=== PATIENT | female | born 1940 | race Caucasian/White ===

== ENCOUNTER 2017-06-17 20:00 | Observation (INO) | payer MEDICARE, OTHER ==
[2017-06-17] MEDS ORDERED: Aspirin 81 MG Tab.Chew PO ONE (21:46)
--- NOTE | 2017-06-17 21:49 | EDM.PDOC ---
ED HPI GENERAL MEDICAL PROBLEM - General Chief Complaint: Chest Pain Stated Complaint: CHEST PAIN Time Seen by Provider: 06/17/17 20:00 Source of Information: Reports: Patient History Limitations: Reports: No Limitations - History of Present Illness INITIAL COMMENTS - FREE TEXT/NARRATIVE: c/o L sided CP x 2.5h pain 08/08, gone just as arrived at ED, no radiation, not had before, has h/o GERD in midline altho this was different no change with walking or DB or changing position never smoked did have CP once before in 2014, admitted for r/o then, not had a stress done never smoked was shopping at the time of CP, no other sxs, no n/v, no f/c/d, no cough/sob had PE 1m ago with PCP Dr Alexandrea kaye in borderline high 0.056, will repeat d-dimer inc'd, will obtain chest CTA has been quite comfortable here 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 Left Breast Pain Score (Numeric/FACES): 5 - Related Data Allergies Allergy/AdvReac Type Severity Reaction Status Date / Time SHRIMP Allergy Rash Uncoded 06/17/17 20:22 Home Meds: Home Meds Fish Oil/DHA/EPA [Fish Oil 1,200 MG] 2 ea PO BEDTIME 06/20/15 [History] Lutein 20 mg PO DAILY 06/20/15 [History] Niacin 1,000 mg PO DAILY 06/20/15 [History] Bisoprolol/Hydrochlorothiazide [Bisoprolol/HCTZ 5-6.25 MG] 1 tab PO ASDIRECTED 06/17/17 [History] Gabapentin [Neurontin] 300 mg PO ASDIRECTED 06/17/17 [History] Past Medical History HEENT History: Reports: Cataract, Impaired Vision Cardiovascular History: Reports: High Cholesterol, Hypertension Gastrointestinal History: Reports: Chronic Constipation, Colon Polyp, GERD Genitourinary History: Reports: Other (See Below) Other Genitourinary History: UNABLE TO COMPOETELY EMPTY BLADDER AT TIMES DIET TECH History: Reports: Other OB/BYN History: HYSTERECTOMIES Musculoskeletal History: Reports: Arthritis, Back Pain, Chronic Endocrine/Metabolic History: Reports: Obesity/BMI 30+ - Infectious Disease History Infectious Disease History: Reports: Chicken Pox, Shingles - Past Surgical History Cardiovascular Surgical History: Reports: Other (See Below) Other Cardiovascular Surgeries/Procedures: angiogram GI Surgical History: Reports: Colonoscopy Female Surgical History: Reports: Hysterectomy Musculoskeletal Surgical History: Reports: Carpal Tunnel, Knee Replacement, Other (See Below) Other Musculoskeletal Surgeries/Procedures:: back surgury Social & Family History - Family History Family Medical History: Noncontributory - Tobacco Use Smoking Status *Q: Never Smoker Second Hand Smoke Exposure: No - Caffeine Use Caffeine Use: Reports: Coffee - Alcohol Use Days Per Week of Alcohol Use: 0 - Recreational Drug Use Recreational Drug Use: No - Living Situation & Occupation Living situation: Reports: , Alone Occupation: Retired ED ROS GENERAL - Review of Systems Review Of Systems: See Below Constitutional: Reports: No Symptoms. Denies: Fever HEENT: Reports: No Symptoms Respiratory: Reports: No Symptoms. Denies: Shortness of Breath, Cough Cardiovascular: Reports: Chest Pain Endocrine: Reports: No Symptoms GI/Abdominal: Reports: No Symptoms : Reports: No Symptoms Musculoskeletal: Reports: No Symptoms Skin: Reports: No Symptoms Neurological: Reports: No Symptoms Psychiatric: Reports: No Symptoms Hematologic/Lymphatic: Reports: No Symptoms Immunologic: Reports: No Symptoms ED EXAM, GENERAL - Physical Exam Exam: See Below Exam Limited By: No Limitations General Appearance: Alert, WD/WN, No Apparent Distress Ears: Normal External Exam Nose: Normal Inspection, Normal Mucosa, No Blood Throat/Mouth: Normal Inspection, Normal Lips, Normal Gums, Normal Voice, No Airway Compromise Head: Atraumatic, Normocephalic Neck: Normal Inspection, Supple, Non-Tender, Full Range of Motion Respiratory/Chest: No Respiratory Distress, Lungs Clear, Normal Breath Sounds, No Accessory Muscle Use, Chest Non-Tender, Other (discomfort in MCL several cm below clavicle, NT now) Cardiovascular: Regular Rate, Rhythm, No Edema, No Gallop, No JVD, No Rub, Other (2/6 JEREMIAS at LSB) GI/Abdominal: Normal Bowel Sounds, Soft, Non-Tender, No Distention Back Exam: Normal Inspection, Full Range of Motion, NT Extremities: Normal Inspection, Normal Range of Motion, Non-Tender, Other ( trace edmea b/l, symmetric) Neurological: Alert, Oriented, CN II-XII Intact, Normal Cognition, No Motor/ Sensory Deficits Psychiatric: Normal Affect, Normal Mood Skin Exam: Warm, Dry, Intact, Normal Color, No Rash Lymphatic: No Adenopathy Course - Vital Signs Last Recorded V/S: Last Vital Signs Temp 36.8 C 06/17/17 20:34 Pulse 57 L 06/17/17 22:36 Resp 14 06/17/17 22:36 BP 146/70 H 06/17/17 22:36 Pulse Ox 98 06/17/17 22:36 - Orders/Labs/Meds Orders: Active Orders 24 hr Category Date Time Status Admission Status [Patient Status] [ADT] Routine ADT 06/17/17 23:50 Ordered EKG Documentation Completion [RC] ASDIRECTED Care 06/17/17 20:39 Active Ang Chest [CT] Stat Exams 06/17/17 21:38 Taken Chest 2V [CR] Stat Exams 06/17/17 20:38 Taken Sodium Chloride 0.9% [Saline Flush] Med 06/17/17 21:58 Active 10 ml FLUSH ASDIRECTED PRN Saline Lock Insert [OM.PC] Routine Oth 06/17/17 21:58 Ordered EKG 12 Lead [EK] Routine Ther 06/17/17 20:38 Ordered Medication Orders Sodium Chloride (Saline Flush) 10 ml FLUSH ASDIRECTED PRN PRN Reason: Keep Vein Open Last Admin: 06/17/17 21:58 Dose: 10 ml Labs: Laboratory Tests 06/17/17 06/17/17 06/17/17 Range/Units 20:55 20:55 20:55 WBC 7.3 (4.5-12.0) X10-3/uL RBC 4.58 (3.23-5.20) x10(6)uL Hgb 13.5 (11.5-15.5) g/dL Hct 40.3 (30.0-51.3) % MCV 88.0 (80-96) fL MCH 29.5 (27.7-33.6) pg MCHC 33.5 (32.2-35.4) g/dL RDW 13.7 (11.5-15.5) % Plt Count 256 (125-369) X10(3)uL MPV 7.9 (7.4-10.4) fL Neut % (Auto) 57.0 (46-82) % Lymph % (Auto) 30.1 (13-37) % Ferry % (Auto) 9.8 (4-12) % Eos % (Auto) 2 (1.0-5.0) % Baso % (Auto) 1 (0-2) % Neut # (Auto) 4.1 (1.6-8.3) # Lymph # (Auto) 2.2 (0.6-5.0) # Ferry # (Auto) 0.7 (0.0-1.3) # Eos # (Auto) 0.2 (0.0-0.8) # Baso # (Auto) 0.1 (0.0-0.2) # D-Dimer, Quantitative 920 H (100-400) ng/mL Sodium 143 (135-145) mmol/L Potassium 4.1 (3.5-5.3) mmol/L Chloride 106 (100-110) mmol/L Carbon Dioxide 27 (21-32) mmol/L BUN 17 (7-18) mg/dL Creatinine 0.9 (0.55-1.02) mg/dL Est Cr Clr Drug Dosing 43.77 mL/min Estimated GFR (MDRD) > 60 (>60) BUN/Creatinine Ratio 18.9 (9-20) Glucose 114 (80-116) mg/dL Calcium 9.0 (8.6-10.2) mg/dL Total Bilirubin 0.3 (0.1-1.3) mg/dL AST 23 (5-25) IU/L ALT 26 (12-36) U/L Alkaline Phosphatase 83 (56-112) IU/L Troponin I (<0.017-0.056) ng/mL C-Reactive Protein (0.5-0.9) mg/dL NT-Pro-B Natriuret Pep (<=450) pg/mL Total Protein 7.6 (6.0-8.0) g/dL Albumin 3.4 (3.2-4.6) g/dL Globulin 4.2 g/dL Albumin/Globulin Ratio 0.8 06/17/17 06/17/17 Range/Units 20:55 23:05 WBC (4.5-12.0) X10-3/uL RBC (3.23-5.20) x10(6)uL Hgb (11.5-15.5) g/dL Hct (30.0-51.3) % MCV (80-96) fL MCH (27.7-33.6) pg MCHC (32.2-35.4) g/dL RDW (11.5-15.5) % Plt Count (125-369) X10(3)uL MPV (7.4-10.4) fL Neut % (Auto) (46-82) % Lymph % (Auto) (13-37) % Ferry % (Auto) (4-12) % Eos % (Auto) (1.0-5.0) % Baso % (Auto) (0-2) % Neut # (Auto) (1.6-8.3) # Lymph # (Auto) (0.6-5.0) # Ferry # (Auto) (0.0-1.3) # Eos # (Auto) (0.0-0.8) # Baso # (Auto) (0.0-0.2) # D-Dimer, Quantitative (100-400) ng/mL Sodium (135-145) mmol/L Potassium (3.5-5.3) mmol/L Chloride (100-110) mmol/L Carbon Dioxide (21-32) mmol/L BUN (7-18) mg/dL Creatinine (0.55-1.02) mg/dL Est Cr Clr Drug Dosing mL/min Estimated GFR (MDRD) (>60) BUN/Creatinine Ratio (9-20) Glucose (80-116) mg/dL Calcium (8.6-10.2) mg/dL Total Bilirubin (0.1-1.3) mg/dL AST (5-25) IU/L ALT (12-36) U/L Alkaline Phosphatase (56-112) IU/L Troponin I 0.056 0.058 H (<0.017-0.056) ng/mL C-Reactive Protein 0.3 L (0.5-0.9) mg/dL NT-Pro-B Natriuret Pep 291 (<=450) pg/mL Total Protein (6.0-8.0) g/dL Albumin (3.2-4.6) g/dL Globulin g/dL Albumin/Globulin Ratio Meds: Medications Generic Name Dose Route Start Last Admin Trade Name Freq PRN Reason Stop Dose Admin Sodium Chloride 10 ml 06/17/17 21:58 06/17/17 21:58 Saline Flush FLUSH 10 ml ASDIRECTED PRN Administration Keep Vein Open Discontinued Medications Generic Name Dose Route Start Last Admin Trade Name Mati PRN Reason Stop Dose Admin Aspirin 324 mg 06/17/17 21:46 06/17/17 22:01 Aspirin PO 06/17/17 21:47 324 mg ONETIME ONE Administration Iopamidol 80 ml 06/17/17 21:54 06/17/17 22:12 Isovue-370 (76%) IV 06/17/17 21:55 80 ml . DIRECTED ONE Administration - Re-Assessments/Exams Free Text/Narrative Re-Assessment/Exam: 06/17/17 23:52 inc'd d-dimer, however chest CTA is neg for PE trop x 2 at ULN at 0.056 and 0.058, which is an increase from trop x 3 from 3y ago that were 0.001 admission to obs bed recommended, pt and son agree pt worried re cost of admission, will defer on ASA 81 mg for now as she was given 324 mg PO this evening and can also take a dose of ASA 81 mg within 24h if she should be d/c'ed by tomorrow afternoon Departure - Departure Time of Disposition: 23:55 Disposition: Home, Self-Care 01 Condition: Good Clinical Impression: Chest pain, rule out acute myocardial infarction, Elevated troponin Referrals: Aj Torres MD [Primary Care Provider] - Forms: ED Department Discharge - My Orders Last 24 Hours: My Active Orders 06/17/17 20:38 Chest 2V [CR] Stat EKG 12 Lead [EK] Routine 06/17/17 20:39 EKG Documentation Completion [RC] ASDIRECTED 06/17/17 21:38 Ang Chest [CT] Stat 06/17/17 21:58 Sodium Chloride 0.9% [Saline Flush] 10 ml FLUSH ASDIRECTED PRN Saline Lock Insert [OM.PC] Routine 06/17/17 23:50 Admission Status [Patient Status] [ADT] Routine - Assessment/Plan Last 24 Hours: My Active Orders 06/17/17 20:38 Chest 2V [CR] Stat EKG 12 Lead [EK] Routine 06/17/17 20:39 EKG Documentation Completion [RC] ASDIRECTED 06/17/17 21:38 Ang Chest [CT] Stat 06/17/17 21:58 Sodium Chloride 0.9% [Saline Flush] 10 ml FLUSH ASDIRECTED PRN Saline Lock Insert [OM.PC] Routine 06/17/17 23:50 Admission Status [Patient Status] [ADT] Routine
[2017-06-17] MEDS ORDERED: Iopamidol 755 Mg/ML 100 ML Bottle IV ONE (21:54)
[2017-06-17] MEDS ORDERED: Sodium Chloride 0.9% 10 ML Syringe FLUSH PRN (21:58)
[2017-06-18] MEDS ORDERED: Acetaminophen 500 MG Tab PO SCH (09:00)
[2017-06-18] MEDS ORDERED: Gabapentin 300 MG Cap PO SCH ×2 (09:00→12:00)
--- NOTE | 2017-06-18 11:03 | CR ---
INDICATION: Left-sided chest pain. CHEST: PA and lateral views of the chest, 06/17/2017, were compared with 2014, and revealed the aorta to be tortuous with calcification in the arch. The heart appears to be at the upper limits of normal in size, possibly with some minimal left ventricular enlargement. Overlying EKG leads are noted. An active infiltrate or effusion was not identified. Flattened diaphragm leaves, prominent AP diameter, and hyperaeration all suggest COPD. Flowing hyperostotic changes are noted in the upper middle thoracic spine, possibly on the basis of DISH. Somewhat diminished bone density is suggested, compatible with osteoporosis. IMPRESSION: No acute process. Findings as noted above. MTDD
[2017-06-18 17:20] VITALS: BP 114/59
--- NOTE | 2017-06-18 17:35 | PCM.HP ---
H&P History of Present Illness - General Date of Service: 06/18/17 Admit Problem/Dx: Admission Diagnosis/Problem Admission Diagnosis/Problem Chest pain, rule out acute myocardial infarction Source of Information: Patient, Old Records, Provider History Limitations: Reports: No Limitations - History of Present Illness Initial Comments - Free Text/Narative: Patient is a 77-year-old female with a history of gastroesophageal reflux disease who last evening about 5 PM after shopping all day developed left-sided chest pain 5 out of 10 while sitting in a chair. Lasted about 2-1/2 hours. She took a baby aspirin. She thought it was "indigestion" and she's had a lot of indigestion in the past but she had just taken her gabapentin so was unable to take a heartburn medication for it and grew more and more concerned so finally decided to come to the emergency department. She had no other symptoms, no shortness of breath, no dizziness, no nausea, no vomiting, no bile taste in the mouth, no radiation of the pain. The pain was just in the left chest right where the "heart is". Past medical history: #1 hyperlipidemia #2 hypertension #3 constipation #4 gastroesophageal reflux disease #5 urinary retention #6 osteoarthritis #7 obesity Social history: The patient is and has 4 sons. She lives alone outside of [place] and one son is fairly nearby about 5 miles away. She drinks about one drink less than once a week and does not smoke. Family history: Mother of heart disease at 90 and father of heart disease at 89. She has 4 sons with no medical problems other than one who has diabetes. Left Breast Pain Score (Numeric/FACES): 5 - Related Data Allergies/Adverse Reactions: Allergies Allergy/AdvReac Type Severity Reaction Status Date / Time SHRIMP Allergy Rash Uncoded 06/17/17 20:22 Home Medications: Home Meds Lutein 20 mg PO DAILY@1200 06/20/15 [History] Niacin 1,000 mg PO DAILY@1200 06/20/15 [History] Bisoprolol/Hydrochlorothiazide [Bisoprolol/HCTZ 5-6.25 MG] 1 tab PO DAILY@1200 06/17/17 [History] Gabapentin [Neurontin] 600 mg PO BID 06/17/17 [History] Acetaminophen [Tylenol Extra Strength] 1,000 mg PO BID 06/18/17 [History] Carboxymethylcellulose Sodium [Refresh Tears] 1 drop EYEBOTH TID PRN 06/18/17 [ History] Fish Oil/[place]-3 Fatty Acids [Fish Oil 1,000 MG] 2 gm PO DAILY@1200 06/18/17 [ History] Gabapentin [Neurontin] 300 mg PO 1200 06/18/17 [History] Inulin/Chromium Picolinate [Fiber Gummies] 1 tab CHEW BEDTIME 06/18/17 [History] L.acidoph,Paracasei, B.lactis [Probiotic] 1 each PO 1200 06/18/17 [History] Past Medical History HEENT History: Reports: Cataract, Impaired Vision Cardiovascular History: Reports: High Cholesterol, Hypertension Gastrointestinal History: Reports: Chronic Constipation, Colon Polyp, GERD, Hemorrhoids Genitourinary History: Reports: Other (See Below) Other Genitourinary History: UNABLE TO COMPLETELY EMPTY BLADDER AT 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: Musculoskeletal History: Reports: Arthritis, Back Pain, Chronic Neurological History: Reports: None Endocrine/Metabolic History: Reports: Obesity/BMI 30+ Hematologic History: Reports: Anemia, Blood Transfusion(s) - Infectious Disease History Infectious Disease History: Reports: Chicken Pox, Measles, Shingles - Past Surgical History Head Surgeries/Procedures: Reports: None Cardiovascular Surgical History: Reports: Other (See Below) Other Cardiovascular Surgeries/Procedures: angiogram GI Surgical History: Reports: Colonoscopy, Other (See Below) Other GI Surgeries/Procedures: hemorrhoid surgery Female Surgical History: Reports: D&C, Hysterectomy Other Female Surgeries/Procedures: 2 D&C's Neurological Surgical History: Reports: Laminectomy, Spinal Fusion Musculoskeletal Surgical History: Reports: Carpal Tunnel, Knee Replacement, Other (See Below) Other Musculoskeletal Surgeries/Procedures:: back surgury, bilat knee replacements, bilat bunionectomy, R carpal tunnel, Social & Family History - Family History Family Medical History: Noncontributory - Tobacco Use Smoking Status *Q: Former Smoker Years of Tobacco use: 1 Used Tobacco, but Quit: Yes Month/Year Tobacco Last Used: 1957 Second Hand Smoke Exposure: No - Caffeine Use Caffeine Use: Reports: Soda, Tea - Alcohol Use Days Per Week of Alcohol Use: 0 - Recreational Drug Use Recreational Drug Use: No - Living Situation & Occupation Living situation: Reports: , Alone Occupation: Retired H&P Review of Systems - Review of Systems: Review Of Systems: ROS reveals no pertinent complaints other than HPI. Exam - Exam Exam: See Below - Vital Signs Vital Signs: Last Vital Signs Temp 36.7 C 06/18/17 16:00 Pulse 62 06/18/17 16:00 Resp 18 06/18/17 16:00 BP 114/59 L 06/18/17 16:00 Pulse Ox 93 L 06/18/17 16:00 Weight: 114.351 kg - Exam General: Alert, Oriented, Cooperative HEENT: PERRLA, Conjunctiva Clear, Mucosa Moist & [place], Posterior Pharynx Clear Neck: Supple, Trachea Midline Lungs: Clear to Auscultation, Normal Respiratory Effort Cardiovascular: Regular Rate, Regular Rhythm, Normal S1, Normal S2 GI/Abdominal Exam: Normal Bowel Sounds, Soft, Non-Tender, No Distention Back Exam: Normal Inspection, Full Range of Motion Extremities: Normal Inspection, No Pedal Edema Psychiatric: Alert, Normal Affect, Normal Mood - Patient Data Lab Results Last 24 hrs: Laboratory Results - last 24 hr 06/18/17 Range/Units 06:10 Troponin I 0.051 (<0.017-0.056) ng/mL Result Diagrams: 06/17/17 20:55 06/17/17 20:55 *Q Meaningful Use (ADM) - VTE *Q VTE Criteria *Q: - Stroke *Q Stroke Criteria *Q: - AMI *Q AMI Criteria *Q: - Problem List (1) Chest pain, rule out acute myocardial infarction SNOMED Code(s): 09448074 ICD Code: R07.9 - CHEST PAIN, UNSPECIFIED Status: Acute Current Visit: Yes Problem Details: Patient's initial troponin was 0.056 and on repeat 0.058. On repeat this morning it was 0.051. Echocardiogram was available today so we got an echo and there is no evidence of wall motion abnormalities or infarction. After discussion with the patient, I do feel this was likely gastroesophageal reflux as does she. She feels very reassured. We talked about taking her medications after gabapentin and using water with baking soda perhaps or something that doesn't contain minerals but if she needs to take something even an hour or so after her gabapentin she certainly can. She is going to start a baby aspirin a day and can discharge home today. Problem List Initiated/Reviewed/Updated: Yes Orders Last 24hrs: Active Orders 24 hr Category Date Time Status Echo Comp wo Cont [US] Urgent Exams 06/18/17 08:00 Taken Acetaminophen [Tylenol Extra Strength] Med 06/18/17 09:00 Active 1,000 mg PO BID Bisoprolol/Hydrochlorothiazide [Ziac 5-6.25 MG] Med 06/18/17 12:00 Active 1 tab PO DAILY@1200 Gabapentin [Neurontin] Med 06/18/17 12:00 Active 300 mg PO 1200 Gabapentin [Neurontin] Med 06/18/17 09:00 Active 600 mg PO BID EKG 12 Lead [EK] Routine Ther 06/18/17 06:00 Ordered Medication Orders Acetaminophen (Tylenol Extra Strength) 1,000 mg PO BID [facility] Last Admin: 06/18/17 10:00 Dose: Bisoprolol Fumarate/HCTZ (Ziac 5-6.25 Mg) 1 tab PO DAILY@1200 [facility] Last Admin: 06/18/17 13:57 Dose: Gabapentin (Neurontin) 300 mg PO 1200 [facility] Last Admin: 06/18/17 13:56 Dose: Gabapentin (Neurontin) 600 mg PO BID [facility] Last Admin: 06/18/17 10:00 Dose: Sodium Chloride (Saline Flush) 10 ml FLUSH ASDIRECTED PRN PRN Reason: Keep Vein Open Last Admin: 06/17/17 21:58 Dose: 10 ml Assessment/Plan Comment:: Discharge instructions: Patient will discharge home to follow-up with her primary care provider in one week. Start a baby aspirin daily 81 mg enteric- coated and avoid strenuous activity until follow-up. CODE STATUS: Discussed at length with the patient. The patient is a full code but would definitely not want to be kept alive on a ventilator or have a trach done or be kept alive on machines particularly if she were in a terminal condition. However she feels that her current state of good health she is a good candidate to be resuscitated. FULL CODE.
== END 2017-06-18 18:47 | disposition home or self-care (01) ==
LOC: FB.ED 20:00 → FB.MS 23:50
PROVIDERS: ADMIT Emergency Medicine; ATTEND Family Medicine
DX: R07.9 Chest pain, unspecified (principal); I10 Essential (primary) hypertension; E78.5 Hyperlipidemia, unspecified; K21.9 Gastro-esophageal reflux disease without esophagitis; E66.9 Obesity, unspecified; K59.09 Other constipation; Z91.013 Allergy to seafood; Z79.899 Other long term (current) drug therapy; Z68.30 Body mass index [BMI] 30.0-30.9, adult; Z87.891 Personal history of nicotine dependence
CPT/HCPCS: 36415; 71046; 71275; 80053; 83880; 84484; 85025; 85379; 86140; 93005; 93306; 99285; A9270; J7050; Q9967